=== PATIENT | female | born 1940 | race Hispanic/Latino ===

== ENCOUNTER 2017-08-03 09:00 | Outpatient (CLI) | payer MEDICARE | END 2017-08-03 09:01 | disposition home or self-care (01) | LOC: DTY/OP 09:00 | PROVIDERS: ATTEND Family Medicine | DX: E11.9 Type 2 diabetes mellitus without complications (principal) | CPT/HCPCS: 97802 ==

== ENCOUNTER 2018-06-09 06:04 | Emergency (ER) | payer MEDICARE ==
[2018-06-09 06:28] LABS: #Basophils 0.1 thou/uL (0.0-0.2); #Eosinphils 0.1 thou/uL (0.0-0.7); #Lymphocytes 0.8 thou/uL (1.20-3.40); #Monocytes 0.5 thou/uL (0.11-0.59); #Neutrophils 6.2 thou/uL (1.40-6.50); %Basophils 0.8 % (0.0-1.0); %Eosinophils 1.4 % (0.0-10.0); %Lymphocytes 10.2 % (21.0-51.0); %Monocytes 6.2 % (0.0-10.0); %Neutrophils 81.4 % (42.0-75.0); Hemoglobin 14.8 g/dL (12.0-16.0); Mean Corpuscular HGB CONC 33.7 g/dL (32.0-36.0); Mean Corpuscular Volume 88.9 fL (78.0-98.0); Mean Platelet Volume 6.8 fL (7.4-10.4); Platelet Count 188 thou/uL (130-400); Red Blood Cell (RBC) Count 4.93 mill/uL (4.20-5.40); White Blood Cell (WBC) Count 7.6 thou/uL (4.8-10.8)
[2018-06-09 06:45] LABS: ALT (SGPT) 37 U/L (8-55); AST (SGOT) 25 U/L (5-34); Albumin 4.5 g/dL (3.4-4.8); Alkaline Phosphatase 68 U/L (40-150); Anion Gap 12 mmol/L (10-20); BUN (Urea Nitrogen) 9 mg/dL (9.8-20.1); Bilirubin, Total 0.9 mg/dL (0.2-1.2); CK (CPK) 42 U/L (29-168); Calc. Creatinine Clearance 0 mL/min (70-130); Calcium 9.1 mg/dL (7.8-10.44); Carbon Dioxide 25 mmol/L (23-31); Chloride 102 mmol/L (98-107); Estimated GFR-MDRD 81; Glucose 172 mg/dL (83-110); Potassium 4.3 mmol/L (3.5-5.1); Protein, Total 7.5 g/dL (6.0-8.3); Sodium 135 mmol/L (136-145)
[2018-06-09] MEDS ORDERED: Nitroglycerin 0.4 MG TAB (25 Tab Bottle) ONE (06:47)
[2018-06-09 06:49] LABS: CKMB 1.1 ng/mL (0-6.6); Troponin I Less than 0.010 ng/mL (< 0.028)
--- NOTE | 2018-06-09 07:48 | RAD ---
PORTABLE CHEST 1 VIEW: Date: 06/09/18. Time: 5:32 a.m. HISTORY: Chest pain. FINDINGS: Comparison is made with the exam of 09/18/16. The heart size is normal. The lungs are expanded without focal areas of consolidation or pneumothora x or pleural effusions. A small calcified granuloma is again seen in the left upper lobe. IMPRESSION: No acute process. POS: [facility]
== END 2018-06-09 07:51 | disposition home or self-care (01) ==
LOC: ERS 06:04
DX: R07.9 Chest pain, unspecified (principal); E03.9 Hypothyroidism, unspecified; I10 Essential (primary) hypertension; Z79.899 Other long term (current) drug therapy
CPT/HCPCS: 71045; 80053; 82550; 82553; 84484; 85025; 93005

== ENCOUNTER 2018-12-04 15:30 | Outpatient (CLI) | payer MEDICARE ==
--- NOTE | 2018-12-04 16:58 | MRI ---
MR ANGIOGRAM OF THE [place] OF [place]: Date: 12/04/18 HISTORY: 3 weeks ago, patient felt like her ears were full and could feel a slight pulsing in her left ear. COMPARISON: None. TECHNIQUE: MR angiogram of the [place] is performed in the axial plane utilizing 3D [id number] imag ing. Maximum intensity projection images are submitted for interpretation. FINDINGS: There is symmetric flow-related signal in the distal cervical and intracranial internal carotid arter ies. Anterior Circulation: Symmetric flow-related signal in the A1 and M1 segments. Symmetric flow-relate d signal in the proximal A2 segments and proximal MCA branches. Posterior Circulation: Limited evaluation of both PICA artery origins. Both PICA artery origins do a ppear to be grossly unremarkable on the axial source images. Both vertebral arteries supply a normal appearing basilar artery. There is appropriate flow-related signal in the basilar artery, as well as both P1 segments. IMPRESSION: Unremarkable MR angiogram of the brain. POS: [facility]
== END 2018-12-04 15:31 | disposition home or self-care (01) ==
LOC: MRI 15:30
PROVIDERS: ATTEND Specialist
DX: H93.A2 Pulsatile tinnitus, left ear (principal)
CPT/HCPCS: 70544

== ENCOUNTER 2021-07-07 08:54 | Outpatient (CLI) | payer MEDICARE | END 2021-07-07 08:55 | disposition home or self-care (01) | LOC: BICMAMMO 08:54 | PROVIDERS: ATTEND Family Medicine | DX: Z12.31 Encounter for screening mammogram for malignant neoplasm of breast (principal); Z85.850 Personal history of malignant neoplasm of thyroid | CPT/HCPCS: 77063; 77067 ==

== ENCOUNTER 2022-07-08 15:25 | Inpatient (IN) | payer MEDICARE ==
[2022-07-08 16:07] LABS: #Basophils 0.1 thou/uL (0.0-0.2); #Eosinphils 0.2 thou/uL (0.0-0.7); #Lymphocytes 2.5 thou/uL (1.20-3.40); #Monocytes 0.6 thou/uL (0.11-0.59); #Neutrophils 3.4 thou/uL (1.40-6.50); %Lymphocytes 36.7 % (21.0-51.0); %Monocytes 8.8 % (0.0-10.0); %Neutrophils 50.5 % (42.0-75.0); Hemoglobin 14.9 g/dL (12.0-16.0); Mean Corpuscular HGB CONC 32.8 g/dL (32.0-36.0); Mean Corpuscular Hemoglobin 29.6 pg (27.0-31.0); Mean Corpuscular Volume 90.1 fL (78.0-98.0); Mean Platelet Volume 7.7 fL (7.4-10.4); Platelet Count 194 thou/uL (130-400); Red Blood Cell (RBC) Count 5.04 mill/uL (4.20-5.40); White Blood Cell (WBC) Count 6.8 thou/uL (4.8-10.8)
[2022-07-08 16:22] LABS: ALT (SGPT) 25 U/L (8-55); AST (SGOT) 17 U/L (5-34); Albumin 4.3 g/dL (3.4-4.8); Alkaline Phosphatase 66 U/L (40-110); Anion Gap 12 mmol/L (10-20); BUN (Urea Nitrogen) 17 mg/dL (9.8-20.1); Bilirubin, Total 0.5 mg/dL (0.2-1.2); Calc. Creatinine Clearance 0 mL/min (70-130); Calcium 9.7 mg/dL (7.8-10.44); Carbon Dioxide 25 mmol/L (23-31); Chloride 104 mmol/L (98-107); Estimated GFR 85; Globulin 2.9 g/dL (2.4-3.5); Glucose 149 mg/dL (83-110); Potassium 3.9 mmol/L (3.5-5.1); Protein, Total 7.2 g/dL (5.8-8.1); Sodium 137 mmol/L (136-145)
[2022-07-08] MEDS ORDERED: Clopidogrel Bisulfate 75 MG TAB ONE (17:07)
[2022-07-08] MEDS ORDERED: Nitroglycerin 0.4 MG TAB 1 EACH ONE ×2 (17:08→17:09)
[2022-07-08] MEDS ORDERED: Labetalol HCl 100 MG/20 ML VIAL SLOW IVP SCH (18:30)
[2022-07-08] MEDS ORDERED: Ondansetron ODT 4 MG TAB PO PRN (18:33)
[2022-07-08] MEDS ORDERED: Ondansetron PF 4 MG/2 ML Vial IVP PRN (18:33)
[2022-07-08] MEDS ORDERED: Acetaminophen 325 MG TAB PO PRN (18:33)
[2022-07-08] MEDS ORDERED: Labetalol HCl 100 MG/20 ML VIAL ONE (18:37)
[2022-07-08 19:14] LABS: Magnesium 1.9 mg/dL (1.6-2.6)
[2022-07-08 19:19] LABS: Troponin I Less than 0.010 ng/mL (< 0.028)
[2022-07-08] MEDS: Atorvastatin Calcium 40 MG TAB PO SCH (21:50)
[2022-07-08] MEDS: Famotidine 20 MG TAB PO SCH (21:51)
[2022-07-08] MEDS: hydrALAZINE 20 MG/ML VIAL SLOW IVP PRN (21:52)
[2022-07-08 22:34] VITALS: BMI 32.5
[2022-07-09] MEDS: Labetalol HCl 100 MG/20 ML VIAL SLOW IVP PRN ×3 (00:17→23:46)
[2022-07-09 04:27] LABS: #Eosinphils 0.3 thou/uL (0.0-0.7); #Lymphocytes 2.5 thou/uL (1.20-3.40); #Monocytes 0.6 thou/uL (0.11-0.59); #Neutrophils 3.2 thou/uL (1.40-6.50); %Basophils 0.7 % (0.0-1.0); %Lymphocytes 37.5 % (21.0-51.0); %Monocytes 9.6 % (0.0-10.0); %Neutrophils 48.2 % (42.0-75.0); Hemoglobin 14.2 g/dL (12.0-16.0); Mean Corpuscular HGB CONC 32.6 g/dL (32.0-36.0); Mean Corpuscular Hemoglobin 29.7 pg (27.0-31.0); Mean Corpuscular Volume 91.3 fL (78.0-98.0); Mean Platelet Volume 7.8 fL (7.4-10.4); Platelet Count 180 thou/uL (130-400); Red Blood Cell (RBC) Count 4.76 mill/uL (4.20-5.40); White Blood Cell (WBC) Count 6.7 thou/uL (4.8-10.8)
[2022-07-09 04:39] LABS: Anion Gap 11 mmol/L (10-20); BUN (Urea Nitrogen) 13 mg/dL (9.8-20.1); Calc. Creatinine Clearance 97 mL/min (70-130); Calcium 9.1 mg/dL (7.8-10.44); Carbon Dioxide 27 mmol/L (23-31); Cardiac Risk 3.4 (Less than 4.5); Chloride 104 mmol/L (98-107); Cholesterol 144 mg/dl (< 200 Desired); Estimated GFR 88; Glucose 171 mg/dL (83-110); HDL Cholesterol 42 mg/dL (>60 Neg Risk); LDL Cholesterol, Calculated 85 mg/dL; Potassium 3.7 mmol/L (3.5-5.1); Sodium 138 mmol/L (136-145); Triglycerides 85 mg/dL (Less than 150)
[2022-07-09] MEDS ORDERED: Aspirin 81 mg Enteric Coated Tablet PO SCH ×2 (09:00)
[2022-07-09] MEDS: Famotidine 20 MG TAB PO SCH ×2 (10:54→20:53)
[2022-07-09] MEDS: Atorvastatin Calcium 40 MG TAB PO SCH (20:53)
[2022-07-09] MEDS: Enoxaparin Sodium 40 MG/0.4 ML SYRINGE SC SCH (20:54)
[2022-07-09] MEDS ORDERED: Lisinopril/Hydrochlorothiazide 10 mg/12.5 mg Tablet PO SCH (21:00)
[2022-07-09] MEDS: Melatonin 3 MG TAB PO PRN (23:46)
[2022-07-10 05:34] LABS: #Basophils 0.1 thou/uL (0.0-0.2); #Eosinphils 0.3 thou/uL (0.0-0.7); #Lymphocytes 3.1 thou/uL (1.20-3.40); #Monocytes 0.7 thou/uL (0.11-0.59); %Basophils 0.7 % (0.0-1.0); %Eosinophils 3.6 % (0.0-10.0); %Lymphocytes 43.7 % (21.0-51.0); %Monocytes 9.6 % (0.0-10.0); %Neutrophils 42.4 % (42.0-75.0); Hemoglobin 13.7 g/dL (12.0-16.0); Mean Corpuscular HGB CONC 31.3 g/dL (32.0-36.0); Mean Corpuscular Hemoglobin 28.7 pg (27.0-31.0); Mean Corpuscular Volume 91.6 fL (78.0-98.0); Mean Platelet Volume 7.8 fL (7.4-10.4); Platelet Count 178 thou/uL (130-400); RBC Distribution Width 12.1 % (11.5-14.5); Red Blood Cell (RBC) Count 4.78 mill/uL (4.20-5.40)
[2022-07-10 06:06] LABS: Anion Gap 13 mmol/L (10-20); BUN (Urea Nitrogen) 11 mg/dL (9.8-20.1); Calc. Creatinine Clearance 92 mL/min (70-130); Carbon Dioxide 24 mmol/L (23-31); Chloride 104 mmol/L (98-107); Estimated GFR 87; Glucose 151 mg/dL (83-110); Potassium 3.6 mmol/L (3.5-5.1); Sodium 137 mmol/L (136-145)
[2022-07-10] MEDS: Famotidine 20 MG TAB PO SCH (08:21)
[2022-07-10] MEDS ORDERED: Amlodipine 5 MG TAB PO SCH (12:00)
[2022-07-10] MEDS: Labetalol HCl 100 MG/20 ML VIAL SLOW IVP PRN (16:07)
[2022-07-10] MEDS: hydrALAZINE 20 MG/ML VIAL SLOW IVP PRN (18:17)
[2022-07-10] MEDS: Atorvastatin Calcium 40 MG TAB PO SCH ×2 (20:19→20:26)
[2022-07-10] MEDS: Lisinopril/Hydrochlorothiazide 10 mg/12.5 mg Tablet PO SCH (20:20)
[2022-07-10] MEDS: Enoxaparin Sodium 40 MG/0.4 ML SYRINGE SC SCH (20:20)
[2022-07-10] MEDS: Pantoprazole 40 MG VIAL IVP SCH (20:21)
[2022-07-10] MEDS ORDERED: Albuterol Sulfate 2.5 mg/3 ml Neb NEB PRN (20:34)
[2022-07-10 22:04] LABS: Troponin I Less than 0.010 ng/mL (< 0.028)
[2022-07-11] MEDS ORDERED: Midazolam HCl 5 mg/5 ml Vial ONE (04:22)
[2022-07-11] MEDS ORDERED: fentaNYL Citrate/PF 100 MCG/2 ML SYRINGE ONE (04:22)
[2022-07-11 05:11] LABS: #Eosinphils 0.3 thou/uL (0.0-0.7); #Lymphocytes 2.8 thou/uL (1.20-3.40); #Monocytes 0.7 thou/uL (0.11-0.59); #Neutrophils 3.2 thou/uL (1.40-6.50); %Basophils 0.7 % (0.0-1.0); %Lymphocytes 39.1 % (21.0-51.0); %Monocytes 10.2 % (0.0-10.0); %Neutrophils 46.1 % (42.0-75.0); Hemoglobin 14.5 g/dL (12.0-16.0); Mean Corpuscular HGB CONC 31.9 g/dL (32.0-36.0); Mean Corpuscular Hemoglobin 29.3 pg (27.0-31.0); Mean Corpuscular Volume 91.8 fL (78.0-98.0); Mean Platelet Volume 7.7 fL (7.4-10.4); Platelet Count 178 thou/uL (130-400); RBC Distribution Width 12.1 % (11.5-14.5); Red Blood Cell (RBC) Count 4.95 mill/uL (4.20-5.40)
[2022-07-11 05:28] LABS: Anion Gap 13 mmol/L (10-20); BUN (Urea Nitrogen) 10 mg/dL (9.8-20.1); Calc. Creatinine Clearance 86 mL/min (70-130); Calcium 9.6 mg/dL (7.8-10.44); Carbon Dioxide 26 mmol/L (23-31); Chloride 102 mmol/L (98-107); Estimated GFR 81; Glucose 147 mg/dL (83-110); Potassium 3.7 mmol/L (3.5-5.1); Sodium 137 mmol/L (136-145)
[2022-07-11] MEDS ORDERED: Levothyroxine Sodium 100 MCG TAB PO SCH (06:00)
[2022-07-11] MEDS ORDERED: Midazolam HCl 2 mg/2 ml Vial ONE (07:11)
[2022-07-11] MEDS ORDERED: Amlodipine 5 MG TAB PO SCH (09:00)
[2022-07-11] MEDS: Amlodipine 5 MG TAB PO SCH (09:47)
[2022-07-11] MEDS: Lisinopril/Hydrochlorothiazide 10 mg/12.5 mg Tablet PO SCH ×2 (09:48→21:11)
[2022-07-11] MEDS ORDERED: Spironolactone 25 MG TAB PO SCH (12:45)
[2022-07-11] MEDS: Atorvastatin Calcium 40 MG TAB PO SCH (21:11)
[2022-07-11] MEDS: Enoxaparin Sodium 40 MG/0.4 ML SYRINGE SC SCH (21:12)
[2022-07-11] MEDS: Pantoprazole 40 MG VIAL IVP SCH (21:12)
[2022-07-11] MEDS: Melatonin 3 MG TAB PO PRN (21:14)
[2022-07-12 05:09] LABS: #Basophils 0.1 thou/uL (0.0-0.2); #Eosinphils 0.3 thou/uL (0.0-0.7); #Lymphocytes 2.8 thou/uL (1.20-3.40); #Monocytes 0.7 thou/uL (0.11-0.59); #Neutrophils 3.4 thou/uL (1.40-6.50); %Eosinophils 3.8 % (0.0-10.0); %Lymphocytes 38.4 % (21.0-51.0); %Neutrophils 46.7 % (42.0-75.0); Hemoglobin 14.7 g/dL (12.0-16.0); Mean Corpuscular HGB CONC 33.4 g/dL (32.0-36.0); Mean Corpuscular Hemoglobin 30.5 pg (27.0-31.0); Mean Corpuscular Volume 91.4 fL (78.0-98.0); Mean Platelet Volume 7.7 fL (7.4-10.4); Platelet Count 174 thou/uL (130-400); RBC Distribution Width 12.1 % (11.5-14.5); Red Blood Cell (RBC) Count 4.83 mill/uL (4.20-5.40); White Blood Cell (WBC) Count 7.3 thou/uL (4.8-10.8)
[2022-07-12 05:34] LABS: Anion Gap 14 mmol/L (10-20); BUN (Urea Nitrogen) 10 mg/dL (9.8-20.1); Calc. Creatinine Clearance 89 mL/min (70-130); Calcium 9.6 mg/dL (7.8-10.44); Carbon Dioxide 27 mmol/L (23-31); Chloride 98 mmol/L (98-107); Estimated GFR 84; Glucose 134 mg/dL (83-110); Potassium 3.5 mmol/L (3.5-5.1); Sodium 135 mmol/L (136-145)
[2022-07-12] MEDS ORDERED: Spironolactone 25 MG TAB PO SCH (08:00)
[2022-07-12] MEDS: Amlodipine 5 MG TAB PO SCH (09:02)
[2022-07-12] MEDS: Lisinopril/Hydrochlorothiazide 10 mg/12.5 mg Tablet PO SCH (09:03)
[2022-07-12 12:14] VITALS: BP 144/62; TEMP 97.3
== END 2022-07-12 12:36 | disposition home or self-care (01) | DRG 305 ==
LOC: ERS 15:25 → 2SW 17:41 → OBSVTOIN 07-09 16:01
PROVIDERS: ADMIT Student in an Organized Health Care Education/Training Program; ATTEND Student in an Organized Health Care Education/Training Program
DX: I16.0 Hypertensive urgency (principal); Z20.822 Contact with and (suspected) exposure to COVID-19; E89.0 Postprocedural hypothyroidism; I10 Essential (primary) hypertension; R10.12 Left upper quadrant pain; R20.0 Anesthesia of skin; Z88.6 Allergy status to analgesic agent; Z88.8 Allergy status to other drugs, medicaments and biological substances; Z90.49 Acquired absence of other specified parts of digestive tract; Z90.710 Acquired absence of both cervix and uterus; Z98.890 Other specified postprocedural states; Z79.890 Hormone replacement therapy; Z79.899 Other long term (current) drug therapy
CPT/HCPCS: 36415; 70450; 71045; 74176; 76770; 80048; 80053; 80061; 83735; 84443; 84484; 85025; 85379; 93005; 93010; 93306; 93880; 93975; 94640; 94760; 96374; 96375; 96376; C9113; G0378; J0360; J1650; J2250; J7620; U0003; U0005

== ENCOUNTER 2023-07-04 10:24 | Outpatient (CLI) | payer MEDICARE | END 2023-07-04 10:25 | disposition home or self-care (01) | LOC: BICMRI 10:24 | PROVIDERS: ATTEND Orthopaedic Surgery | DX: M23.300 Other meniscus derangements, unspecified lateral meniscus, right knee (principal); M94.261 Chondromalacia, right knee ==